=== PATIENT | female | born 1955 | race Caucasian/White ===

== ENCOUNTER → 2018-07-28 | Outpatient (CLI) | payer BC ==
--- NOTE | 2018-07-29 09:25 | MR ---
EXAMINATION TYPE: MR shoulder RT wo con DATE OF EXAM: 07/28/2018 COMPARISON: None HISTORY: Rt shoulder pain x 1 year TECHNIQUE: Multiplanar, multisequence imaging of the right shoulder is performed without contrast. FINDINGS: Rotator Cuff: Small amount of fluid is adjacent to the subscapularis tendon. Small amount of fluid is adjacent to the supraspinatus tendon. Infraspinatus tendon appears intact teres minor appears normal . Acromioclavicular Joint: Acromioclavicular joint hypertrophy without inferior spurring is present. Th is can contribute to impingement syndrome. Glenohumeral Joint: Humerus articulates with the glenoid. There is subchondral cyst formation within the glenoid. Labrum: Limitedly and poorly visualized. Degenerative changes may be present. Biceps Tendon: The long head of biceps is in normal location within bicipital groove. Minimal fluid a djacent. Bone marrow signal: No additional focal abnormal marrow signal is appreciated. Other: There is mild fluid within the subacromial bursa. No significant joint effusion is evident. IMPRESSION: 1. Mild to moderate tendinosis supraspinatus tendon and subscapularis tendons. 2. Mild tendinosis long head of the biceps tendon. 3. Osteoarthritic degenerative change glenohumeral joint space. 4. Probable degenerative change glenoid labrum. 5. Osteoarthritic degenerative change glenohumeral joint space
== END | disposition home or self-care (01) ==
LOC: RADMRIMAIN 19:32
PROVIDERS: ATTEND Family Medicine
DX: M19.011 Primary osteoarthritis, right shoulder (principal); M75.81 Other shoulder lesions, right shoulder

== ENCOUNTER 2018-07-31 09:55 | Day surgery (SDC) | payer BC ==
[2018-07-30 09:19] VITALS: BMI 33.6
[~2018-07-31 09:55] MED LIST: LACTATED RINGERS 1,000 ML IV SCH; LIDOCAINE 1% 20 ML VIAL (10MG/ML) FOR IV START INTRADERMA PRN
[2018-07-31 10:24] VITALS: RESP 16; TEMP 98.6
[2018-07-31] MEDS ORDERED: PROPOFOL 10 MG/ML 20 ML VIAL IV ONE (11:12)
--- NOTE | 2018-07-31 11:50 | P.PCN ---
Date of Procedure: 07/31/18 Procedure(s) Performed: BRIEF HISTORY: Patient is a 63-year-old pleasant 8 female, scheduled for an elective colonoscopy as a part of screening for colorectal neoplasia. She has family history of colon cancer diagnosed in her uncle in his early 40s. PROCEDURE PERFORMED: Colonoscopy with biopsy. PREOPERATIVE DIAGNOSIS: Screening for colon cancer/family history of colon cancer. IV sedation per Anesthesia. PROCEDURE: After informed consent was obtained, the patient, was brought into the endoscopy unit. IV sedation was administered by Anesthesia under continuous monitoring. Digital rectal examination was normal. Initially the Olympus CF- 160 flexible video colonoscope was then inserted in the rectum, gradually advanced into the cecum without any difficulty. Careful examination was performed as the scope was gradually being withdrawn. Ileocecal valve and the appendiceal orifice were visualized and appeared normal. Prep was excellent. These of the cecum there was a 5 mm polyp that was removed by cold biopsy. Rest of the mucosa of the cecum, ascending colon, transverse colon, descending colon, sigmoid colon, and rectum appeared normal. Retroflexion was performed in the rectum and no lesions were seen. The patient tolerated the procedure well. IMPRESSION: 5 mm cecal polyp status post removal by cold biopsy Rest of the colon appeared normal RECOMMENDATIONS: Findings of this examination were discussed with the patient as well as her family. She was advised to follow with the biopsy results. If the biopsy shows adenoma she can have a repeat colonoscopy in 5 years.
[2018-07-31 12:19] VITALS: BP 101/49; PULSE 57
== END 2018-07-31 12:40 | disposition home or self-care (01) ==
LOC: ORWHC2ENDO 09:55
PROVIDERS: ATTEND Internal Medicine Gastroenterology
DX: Z12.11 Encounter for screening for malignant neoplasm of colon (principal); Z80.0 Family history of malignant neoplasm of digestive organs; K63.5 Polyp of colon; Z87.01 Personal history of pneumonia (recurrent); Z87.891 Personal history of nicotine dependence; K57.92 Diverticulitis of intestine, part unspecified, without perforation or abscess without bleeding; E07.9 Disorder of thyroid, unspecified; Z79.890 Hormone replacement therapy; Z79.899 Other long term (current) drug therapy; Z88.0 Allergy status to penicillin; Z88.2 Allergy status to sulfonamides
CPT/HCPCS: 88305; 45380; J2704

== ENCOUNTER → 2019-03-15 | Outpatient (CLI) | payer BC, MEDICARE ==
[2019-03-15 17:51] LABS: Potassium 4.3 mmol/L (3.5-5.1)
[2019-03-15 17:54] LABS: Basophils % (A) 1 %; Eosinophils # (A) 0.1 k/uL (0-0.7); Eosinophils % (A) 2 %; HGB 13.8 gm/dL (11.4-16.0); Lymphocytes % (A) 33 %; MCH 29.8 pg (25.0-35.0); MCHC 34.6 g/dL (31.0-37.0); Mean Platelet Volume 8.5; Monocytes # (A) 0.2 k/uL (0-1.0); Monocytes % (A) 4 %; Neutrophils # (A) 3.5 k/uL (1.3-7.7); Neutrophils % (A) 58 %; Platelet Count 172 k/uL (150-450); RBC 4.65 m/uL (3.80-5.40); RDW 12.1 % (11.5-15.5); WBC 6.1 k/uL (3.8-10.6)
== END | disposition home or self-care (01) ==
LOC: LABPAT 16:58
PROVIDERS: ATTEND Orthopaedic Surgery
DX: Z01.812 Encounter for preprocedural laboratory examination (principal); M75.41 Impingement syndrome of right shoulder
CPT/HCPCS: 36415; 80051; 85025; 93005

== ENCOUNTER 2019-03-18 06:01 | Day surgery (SDC) | payer BC, MEDICARE ==
[2019-03-17 08:42] VITALS: BMI 34.4
--- NOTE | 2019-03-17 16:58 | HP ---
HISTORY AND PHYSICAL DATE OF SURGERY: 03/18/2019 Kateryna Rosas is a 64-year-old patient seen with progressive right shoulder pain. After treatment options were discussed with her, she elected to proceed with right shoulder arthroscopy. Consent regarding the procedure was obtained. PAST MEDICAL HISTORY: Hypothyroidism. PAST SURGICAL HISTORY: Noncontributory. DAILY MEDICATIONS: Synthroid, Vyvanse. ALLERGIES: PENICILLIN and SULFA. SOCIAL HISTORY: She denies tobacco use. PHYSICAL EVALUATION OF RIGHT SHOULDER: Flexion 140 degrees, abduction 120 degrees. External rotation is 30 degrees with weakness. There is tenderness along the anterolateral acromion and rotator cuff insertion site. Impingement is positive at 80 degrees. Distal neurovascular exam is intact. RADIOGRAPHS: Radiographs of the right shoulder revealed a type 2 anterior acromion, evidence for acromioclavicular joint osteoarthritis as well as some glenohumeral joint osteoarthritis. MRI of the right shoulder revealed acromioclavicular joint osteoarthritis, rotator cuff tendinitis with possible partial tear and glenohumeral joint osteoarthritis. IMPRESSION: 1. Right shoulder impingement with possible rotator cuff tear. 2. Right shoulder acromioclavicular joint osteoarthritis. 3. Right shoulder glenohumeral joint osteoarthritis. 4. Hypothyroidism. PLAN: Right shoulder arthroscopy with subacromial decompression, possible arthroscopic rotator cuff repair, possible John procedure and debridement. MMODL / IJN: [id number] /
[~2019-03-18 06:01] MED LIST changes: +HYDROmorphone 0.5 MG/0.5 ML SYRINGE IVP PRN; -LIDOCAINE 1% 20 ML VIAL (10MG/ML) FOR IV START INTRADERMA PRN
[2019-03-18 06:38] VITALS: TEMP 97.1
[2019-03-18] MEDS ORDERED: LIDOCAINE 1% 20 ML VIAL (10MG/ML) FOR IV START INTRADERMA ONE (06:38)
[2019-03-18] MEDS ORDERED: DEXAMETHASONE SOD PHOSPHATE 10 MG/ML 1 ML VIAL IV ONE (06:45)
[2019-03-18] MEDS ORDERED: ONDANSETRON 4 MG/2 ML VIAL IVP ONE (06:46)
[2019-03-18] MEDS ORDERED: fentaNYL (PF) 50 MCG/ML 2 ML AMP IV ONE (06:46)
[2019-03-18] MEDS ORDERED: MIDAZOLAM PF (FBP) 2 MG/2 ML VIAL IV ONE (06:46)
[2019-03-18] MEDS ORDERED: ROPIVACAINE 5 MG/ML 30 ML VIAL ONE (07:26)
[2019-03-18] MEDS ORDERED: ePHEDrine SULFATE/0.9% NACL/PF 50 MG/5 ML SYRINGE IV ONE (07:26)
[2019-03-18] MEDS ORDERED: KETOROLAC 30 MG/ML 1 ML VIAL ONE (07:26)
[2019-03-18] MEDS ORDERED: fentaNYL (PF) 50 MCG/ML 2 ML AMP ONE (07:26)
[2019-03-18] MEDS ORDERED: PROPOFOL 10 MG/ML 20 ML VIAL IV ONE (07:26)
[2019-03-18] MEDS ORDERED: SUCCINYLCHOLINE CHLORIDE 100 MG/5 ML SYR IV ONE (07:26)
[2019-03-18] MEDS ORDERED: LIDOCAINE 1% INJ 10MG/ML (20 ML MDV) ONE (07:26)
[2019-03-18] MEDS ORDERED: MIDAZOLAM 2 MG/2 ML VIAL ONE (07:26)
--- NOTE | 2019-03-18 08:50 | P.OP ---
Date of Procedure: 03/18/19 Preoperative Diagnosis: Right shoulder impingement Postoperative Diagnosis: 1. Right shoulder impingement 2. Right shoulder grade 4 glenohumeral joint osteoarthritis 3. Right shoulder acromioclavicular joint osteoarthritis 4. Right shoulder partial long head biceps tendon tear 5. Right shoulder superficial labral tear 6. Right shoulder superficial partial rotator cuff tear Procedure(s) Performed: 1. Right shoulder arthroscopic subacromial decompression 2. Right shoulder arthroscopic John procedure 3. Right shoulder arthroscopic biceps tenotomy 4. Right shoulder arthroscopic debridement labral tear 5. Right shoulder debridement superficial partial rotator cuff tear Anesthesia: GETA, regional (Interscalene block) Surgeon: Homer Richard Estimated Blood Loss (ml): 7 Pathology: none sent Condition: stable Disposition: PACU Indications for Procedure: 64-year-old patient seen with progressive right shoulder pain. After having treatment options discussed, she elected to proceed with arthroscopy. Operative Findings: See description of procedure Description of Procedure: Patient underwent an interscalene block by department of anesthesia for postoperative pain management. The patient was then taken to the operative suite. The patient underwent a general anesthetic by the department of anesthesia. The patient was placed into a lateral position and secured. There was appropriate padding of the bony prominence. Right shoulder was then prepped and draped in normal sterile orthopedic fashion. We placed the extremity in 10 pounds of longitudinal traction. A posterior incision was now made for a posterior working portal site. The trocar and cannula were inserted into the glenohumeral joint. Arthroscopy was initiated. Spinal needle was now inserted anteriorly, to ascertain the anterior working portal site. An incision was now made in that area, a trocar was inserted followed by a probe. There was grade 4 chondromalacia changes of both the humeral head and glenoid fossa. There were significant areas of exposed bone. There was some superficial tearing of the superior labrum. The anterior posterior and inferior labrum appeared stable. There was hyperemia partial tearing long head biceps tendon. The rotator cuff appeared intact from glenohumeral side. I performed an arthroscopic biceps tenotomy. I debrided the superficial labral tears down to stable labral tissue. The residual labrum was again probed and found to be stable. Instruments now removed from glenohumeral joint. Utilizing the posterior working portal site, the trocar and cannula were inserted into the subacromial space. Arthroscopy initiated. I made an incision 2 fingerbreadths lateral to the acromion. I introduced my trocar followed by my [employer] ablator. I now began ablating thick subacromial bursal tissue, which exposed the undersurface of the anterior acromion. There was diminished subacromial space. There was a very prominent anterior acromion. A motorized bur was introduced and a subacromial decompression was performed. I also excised some osteophytes off the inferior aspect of the distal clavicle. The AC joint was visualized and noted to be fairly arthritic. The motorized bur was introduced in the anterior portal site and a John procedure was performed without difficulty, decompressing the AC joint nicely. I turned my attention to the rotator cuff. I now probed the rotator cuff tendon. There was some superficial tearing distally along the anterior supraspinatus. I used a motorized shaver and debrided that down to stable tissue. The area was again probed and found to be stable with no perforations. I injected 1 mL Renyte intra-articular. Instruments now removed from the portal sites. All portal sites were approximated with nylon suture. Sterile dressings were applied followed by a shoulder sling. The patient was awakened, transferred to a bed, and taken to recovery in stable condition.
--- NOTE | 2019-03-18 08:54 | P.ANPRN ---
Procedure Note - Anesthesia - Nerve Block Performed Right Interscalene Single Time Out Performed: Yes Date of Procedure: 03/18/19 Procedure Start Time: 06:45 Procedure Stop Time: 06:58 Location of Patient Procedure: PreOp Indication: Acute Post-Operative Pain, Requested by Surgeon Specifically requested for management of pain by DrMariama: Homer Richard Sedation Type: Sedate with meaningful contact maintained Preparation: Sterile Prep Position: Supine Catheter: None Needle Types: Pajunk Needle Gauge: 21 Ultrasound used to visualize needle placement: Yes Ultrasound used to observe medication spread: Yes Injectate: 0.5% Ropivacaine (see comment for volume) (20 cc) Blood Aspirated: No Pain Paresthesia on Injection Noted: No Resistance on Injection: Normal Image Stored and Saved: Yes Events: Uneventful and Well Tolerated
[2019-03-18 09:29] VITALS: RESP 18
[2019-03-18 10:13] VITALS: BP 96/49; PULSE 68
--- NOTE | 2019-03-18 10:47 | XR ---
EXAMINATION TYPE: XR chest 1V portable DATE OF EXAM: 03/18/2019 COMPARISON: Chest CT November 13, 2012. HISTORY: Rule out paralyzed diaphragm. TECHNIQUE: Single frontal view of the chest is obtained. FINDINGS: There is some chronic parenchymal change without new suspicious focal air space opacity, p leural effusion, or pneumothorax seen. Right hemidiaphragm appears slightly more elevated versus left diaphragm versus prior CT. The cardiac silhouette size is upper limits of normal. The osseous stru ctures are intact. IMPRESSION: Slight increased elevation of right hemidiaphragm versus 2013 CT. Advise fluoroscopic sn iff test to further evaluate.
== END 2019-03-18 11:30 | disposition home or self-care (01) ==
LOC: OR 06:01
PROVIDERS: ATTEND Orthopaedic Surgery
DX: M75.101 Unspecified rotator cuff tear or rupture of right shoulder, not specified as traumatic (principal); M19.011 Primary osteoarthritis, right shoulder; M75.41 Impingement syndrome of right shoulder; S46.111A Strain of muscle, fascia and tendon of long head of biceps, right arm, initial encounter; S43.431A Superior glenoid labrum lesion of right shoulder, initial encounter; X58.XXXA Exposure to other specified factors, initial encounter; M94.211 Chondromalacia, right shoulder; M25.711 Osteophyte, right shoulder; E03.9 Hypothyroidism, unspecified; Z79.890 Hormone replacement therapy; Z79.899 Other long term (current) drug therapy; Z88.0 Allergy status to penicillin; Z88.2 Allergy status to sulfonamides; Z88.8 Allergy status to other drugs, medicaments and biological substances; M79.7 Fibromyalgia; K21.9 Gastro-esophageal reflux disease without esophagitis; H91.90 Unspecified hearing loss, unspecified ear; Z87.891 Personal history of nicotine dependence
CPT/HCPCS: 64415; 76942; 71045; 29826; 29827; 29824; Q4212; J2250 ×2; J1100; J0690; J2405; J2001; J3010; J1885; J2795; J0330; J2704

== ENCOUNTER → 2019-07-06 | Outpatient (CLI) | payer MEDICARE ==
--- NOTE | 2019-07-06 08:53 | CT ---
EXAMINATION TYPE: CT chest wo con DATE OF EXAM: 07/06/2019 COMPARISON: 11/13/2012 HISTORY: Multiple lung nodules CT DLP: 366.[address] of the chest was performed with lung and mediastinal window settings submitted. The la ck of contrast limits evaluation of the vascular, mediastinal and parenchymal structures including th e upper abdomen. LUNGS: Stable 3 mm pulmonary nodule left lower lobe image 43. Stable 6 mm pulmonary nodule right midd le lobe image 28. Stable 3.5 mm pulmonary nodule right upper lobe medially image 22. MEDIASTINUM/BREANNA: Thoracic aorta is of normal caliber with limited evaluation given lack of contrast . The heart is not enlarged. No evidence for mediastinal mass. No lymph nodes greater than 1cm. UPPER ABDOMEN: No significant abnormality is seen. OTHER: No significant other abnormality. IMPRESSION: 1. Stable pulmonary nodularity dating back to 2012 which is compatible with benign process.
== END | disposition home or self-care (01) ==
LOC: RADCTMAIN 07:56
PROVIDERS: ATTEND Family Medicine
DX: R91.8 Other nonspecific abnormal finding of lung field (principal)
CPT/HCPCS: 71250

== ENCOUNTER → 2020-11-10 | Outpatient (CLI) | payer MEDICARE ==
--- NOTE | 2020-11-10 19:00 | ECHOF ---
Referral Reason:I07.1 Tricuspid Valve Regurgitation MEASUREMENTS -------- HEIGHT: 158.8 cm WEIGHT: 83.9 kg BP: 144/70 RVIDd: 2.7 cm (< 3.3) IVSd: 0.8 cm (0.6 - 1.1) LVIDd: 4.4 cm (3.9 - 5.3) LVPWd: 0.9 cm (0.6 - 1.1) IVSs: 1.4 cm LVIDs: 3.0 cm LVPWs: 1.5 cm LA Diam: 3.2 cm (2.7 - 3.8) Ao Diam: 2.8 cm (2.0 - 3.7) AV Cusp: 2.0 cm (1.5 - 2.6) MV EXCURSION: 10.716 mm (> 18.000) MV EF SLOPE: 34 mm/s (70 - 150) EPSS: 0.5 cm MV E Malcolm: 0.98 m/s MV DecT: 148 ms MV A Malcolm: 0.76 m/s MV E/A Ratio: 1.28 AR PHT: 529 ms RAP: 5.00 mmHg RVSP: 25.41 mmHg FINDINGS -------- Sinus rhythm. This was a technically adequate study. The left ventricular size is normal. Left ventricular wall thickness is normal. Overall left vent ricular systolic function is normal with, an EF between 55 - 60 %. The right ventricle is normal in size. Normal LA size by volume 22+/-6 ml/m2. The right atrial size is normal. Interatrial and interventricular septum intact. The aortic valve is trileaflet and appears structurally normal. There is mild aortic regurgitation. The mitral valve is normal. There is trace to mild mitral regurgitation. Mild tricuspid regurgitation present. Right ventricular systolic pressure is normal at < 35 mmHg. There is no evidence of pulmonary hypertension. Trace/mild (physiologic) pulmonic regurgitation. The aortic root size is normal. Normal inferior vena cava with normal inspiratory collapse consistent with estimated right atrial pre ssure of 5 mmHg. There is no pericardial effusion. CONCLUSIONS -------- 1. Left ventricular wall thickness is normal. 2. Overall left ventricular systolic function is normal with, an EF between 55 - 60 %. 3. Normal LA size by volume 22+/-6 ml/m2. 4. There is mild aortic regurgitation. 5. There is trace to mild mitral regurgitation. 6. Mild tricuspid regurgitation present. 7. Trace/mild (physiologic) pulmonic regurgitation. 8. There is no pericardial effusion. [employer] WORKER: Tiffanie Ivan RDCS
== END | disposition home or self-care (01) ==
LOC: RADECHMAIN 14:57
PROVIDERS: ATTEND Family Medicine
DX: I08.8 Other rheumatic multiple valve diseases (principal)
CPT/HCPCS: 93306

== ENCOUNTER → 2022-05-08 | Outpatient (CLI) | payer MEDICARE ==
--- NOTE | 2022-05-08 15:38 | US ---
EXAMINATION TYPE: US kidneys/renal and bladder DATE OF EXAM: 05/08/2022 COMPARISON: NONE CLINICAL HISTORY: Microscopic hematuria. EXAM MEASUREMENTS: Right Kidney: 9.7 x 3.3 x 4.4cm Left Kidney: 10.6 x 4.4 x 4.3 cm Post Void Residual Volume: 63.2 mL Right Kidney: wnl Left Kidney: wnl Bladder: wnl Bilateral Jets seen: Yes Post Void Residual: 40% There is no evidence for hydronephrosis at this point in time. No nephrolithiasis is seen. No venessa s are identified. The urinary bladder is anechoic. Bilateral ureteral jets are seen. IMPRESSION: 40% post void residual. Otherwise unremarkable study.
== END | disposition home or self-care (01) ==
LOC: RADUSWWP 14:59
PROVIDERS: ATTEND Family Medicine
DX: N39.9 Disorder of urinary system, unspecified (principal); R31.29 Other microscopic hematuria
CPT/HCPCS: 76770

== ENCOUNTER 2022-10-25 07:19 | Day surgery (SDC) | payer MEDICARE ==
[2022-10-23 10:17] VITALS: BMI 34.2
[~2022-10-25 07:19] MED LIST changes: -HYDROmorphone 0.5 MG/0.5 ML SYRINGE IVP PRN
[2022-10-25 07:43] VITALS: TEMP 97.1
[2022-10-25] MEDS ORDERED: LIDOCAINE 2% INJ 20 MG/ML (2 ML VIAL) ONE (08:12)
[2022-10-25] MEDS ORDERED: PROPOFOL 10 MG/ML 20 ML VIAL IV ONE (08:12)
--- NOTE | 2022-10-25 08:45 | P.PCN ---
Date of Procedure: 10/25/22 Procedure(s) Performed: Brief history: Patient is a pleasant scheduled for an elective upper endoscopy as well as colonoscopy as a part of evaluation of GERD and screening for colon cancer Procedure performed: Esophagogastroduodenoscopy biopsy Colonoscopy Preoperative diagnosis: GERD Screening for colon cancer Anesthesia: MAC Procedure: After informed consent was obtained from the patient was brought into the endoscopy unit and IV sedation was administered by anesthesia under continuous monitoring. Initially upper endoscopy was done. The Olympus GF 160 video endoscope was inserted inserted into the mouth and esophagus intubated without any difficulty and was gradually advanced into the stomach and duodenum and carefully examined. The bulb and second part of the duodenum appeared normal. The scope was then withdrawn into the stomach adequately insufflated with air and upon careful examination the antrum had mild mottling of the mucosa and biopsies were done from this area. Mucosa of the body, cardia and fundus appeared normal. The scope was then withdrawn into the esophagus. The GE junction was located at 40 cm to the incisors. It appeared regular with one superficial erosion consistent with LA grade a reflux esophagitis.. Rest of the esophagus appeared normal. Patient tolerated the procedure well. At this time the patient continued to remain sedation. Initial digital rectal examination was normal. Olympus CF 160 video colonoscope was then inserted into the rectum and gradually advanced to the cecum without any difficulty. Careful examination was performed as the scope was gradually being withdrawn. The prep was excellent. The cecum, ascending colon, transverse colon, descending colon, sigmoid colon and rectum appeared normal. Scattered sigmoid diverticula cyst. Retroflexion was performed in the rectum and no lesions were noted. Patient tolerated the procedure well. Impression: 1. Upper endoscopy revealed mild antral gastritis and LA grade a reflux esophagitis. 2. Colonoscopy was within normal limits with no evidence of colitis or colorectal neoplasia Recommendations: Findings of this examination were discussed with the patient as well as her family. She was advised to follow with the biopsy results. Recommend using [id number] H2 blockers as needed for reflux symptoms. She was advised to have a repeat screening colonoscopy in 10 years.
[2022-10-25 08:51] VITALS: RESP 16
[2022-10-25 09:06] VITALS: BP 138/58; PULSE 65
== END 2022-10-25 09:35 | disposition home or self-care (01) ==
LOC: ORWHC2ENDO 07:19
PROVIDERS: ATTEND Internal Medicine Gastroenterology
DX: Z12.11 Encounter for screening for malignant neoplasm of colon (principal); K57.30 Diverticulosis of large intestine without perforation or abscess without bleeding; K29.50 Unspecified chronic gastritis without bleeding; K21.00 Gastro-esophageal reflux disease with esophagitis, without bleeding; Z88.0 Allergy status to penicillin; Z88.2 Allergy status to sulfonamides; Z88.8 Allergy status to other drugs, medicaments and biological substances; E03.9 Hypothyroidism, unspecified; K21.9 Gastro-esophageal reflux disease without esophagitis; Z79.890 Hormone replacement therapy; Z79.899 Other long term (current) drug therapy
CPT/HCPCS: 88305; 43239; J2704; J2001; G0121